=== PATIENT | male | born 2000 | race Caucasian/White ===

== ENCOUNTER 2022-03-28 17:01 | Emergency (ER) | payer OTHER, SELFPAY ==
[2022-03-28 17:02] VITALS: BP 125/74; PULSE 72; RESP 16; TEMP 36.8; O2SAT 99; BMI 23.8
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
[2022-03-28] MEDS: Fluorescein 1 MG STRIP 1 STRIP LEFT EYE (19:04)
[2022-03-28] MEDS: Tetracaine 0.5% Ophthalmic Bottle 1 DRP LEFT EYE (19:04)
[2022-03-28] MEDS: Erythromycin Base 1 OPTH.TUBE 1 APPLIC LEFT EYE (19:46)
[2022-03-28 19:53] VITALS: RESP 18
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
--- NOTE | 2022-03-28 20:09 | PCM.OP.PRO ---
Procedure Report Date of Procedure: 03/28/22 Pre procedure diagnosis: Embedded conjunctival foreign body, left eye Post procedure diagnosis: Same Procedure performed: Removal of embedded conjunctival foreign body, left eye A timeout was performed confirming the correct patient and procedural site. One drop of proparacaine was instilled in the left eye. The metallic foreign body was removed using jeweler's forceps without complication. The patient tolerated the procedure well. Complications: None
== END 2022-03-28 19:53 | disposition home or self-care (01) ==
PROVIDERS: Emergency Provider Emergency Medicine; Visit Provider Emergency Medicine
DX: H11.32 Conjunctival hemorrhage, left eye (principal); T15.92XA Foreign body on external eye, part unspecified, left eye, initial encounter; Z97.3 Presence of spectacles and contact lenses; T15.00XA Foreign body in cornea, unspecified eye, initial encounter
CPT/HCPCS: 65220; 99283

== ENCOUNTER 2024-08-04 09:50 | Emergency (ER) | payer OTHER, SELFPAY ==
[2024-08-04 09:51] VITALS: BP 135/112; PULSE 84; RESP 18; TEMP 36.9; O2SAT 96; BMI 23.6
--- NOTE | 2024-08-04 10:01 | ED.VIS.GI ---
HPI HPI - GI History of Present Illness Chief Complaint: Abd Pain Informant: patient and parent Narrative Narrative: 24-year-old male presenting to the emergency room with abdominal pain and vomiting. Patient states that he and his girlfriend just flew back from [facility]. He states that on the way to the airport and believes she became ill but still boarded the plane to the . They had to make an emergency plane landing in [place] where she was taken off the airplane on a stretcher by EMS with a blood pressure of 80. She was feeling better by this morning and they flew home but for the past several hours he has had vomiting and upper abdominal pain. No reported fevers. They were not scuba diving. He denies any cuts or rashes. He states that at home he felt like he was going to pass out. He states that the upper abdominal pain is severe and he has not experienced anything like this before. PFSH PFSH Home Medications ?Medication ?Instructions ?Recorded ?Last Taken ?Type dicyclomine 20 mg tablet 20 mg PO TID PRN abdominal pain 08/04/24 Unknown Rx #30 tabs ondansetron 4 mg disintegrating 4 mg PO Q6H PRN PRN Nausea #15 tabs 08/04/24 Unknown Rx tablet Allergy/AdvReac Type Severity Reaction Status Date / Time Penicillins AdvReac Hives Verified 03/28/22 17:06 Social History Smoking Status: Never smoker ROS ROS ED Constitutional Constitutional ED: Denies chills, fever(s) or weight loss Eyes Eyes: Denies change in vision or diplopia ENT ENT ED: Denies ear pain, rhinorrhea or sore throat Cardiovascular Cardiovascular: Denies chest pain, orthopnea, palpitations or racing heartbeat Respiratory/Chest Respiratory/Chest: Denies cough, dyspnea or orthopnea Gastrointestinal Gastrointestinal: Reports abdominal pain, nausea and vomiting; Denies diarrhea Genitourinary Genitourinary ED: Denies dysuria, hematuria or urinary frequency Musculoskeletal Musculoskeletal: Denies arthralgias or myalgias Integumentary Denies abscess or rash Neurologic Neurologic: Denies headache(s) or weakness Psychiatric Psychiatric: Denies anxiety, depression, suicidal ideation or suicidal thoughts Endocrine Endocrinology: Denies polydipsia, polyphagia or polyuria Allergic/Immunologic Allergic/Immunologic ED: Denies mouth swelling, tongue swelling or urticaria EXAM Physical Exam Narrative Exam Narrative: Patient is writhing on the bed hyperventilating. Const Vital Signs: 08/04/24 09:51 08/04/24 11:50 08/04/24 12:03 Temperature 98.5 F 97.9 F Temperature Source Oral Pulse Rate 84 78 78 Respiratory Rate 18 16 16 Blood Pressure 135/112 H 90/70 90/70 Blood Pressure Mean 119 76 76 Pulse Ox 96 98 99 Oxygen Delivery Method Room Air Room Air Positive well nourished and well developed General Appearance ED: well developed and NAD HEENT Reports normocephalic, head/scalp atraumatic and moist mucous membranes Eyes PERRL and EOMs intact bilaterally Neck no lymphadenopathy, supple and no JVD Resp normal respiratory effort and clear to auscultation bilaterally Cardio regular rate, regular rhythm and no murmurs GI Auscultation: hyperactive bowel sounds Palpation: soft and tender other (Diffuse) Back/Spine no CVA tenderness and normal ROM Extremity normal to inspection General Extremety ED: Negative for edema General Extremity: Negative for edema Neuro oriented x3 and CN's II-XII intact bilaterally Sensorium / Orientation: alert Motor Exam: strength 5/5 throughout Psych mental status grossly normal Mood & Affect: Negative for depressed or tearful Skin no rashes or lesions noted and no wounds MDM MDM MDM Narrative Medical decision making narrative: Differential diagnosis includes but not limited to abdominal cramping gastroenteritis vomiting electrolyte abnormalities dehydration colitis IV established patient received IV fluids Zofran as well as Ativan. White count is 10 platelet count of 203 hemoglobin is 15.4. BMP shows a glucose of 120 BUN of 22 creatinine 1.12. Total bilirubin at 1.6 direct bilirubin 0.37 otherwise transaminases and alkaline phosphatase are normal. Lipase is 24. Upon repeat examination patient is feeling significantly better. Vital signs are stable. His pain is significantly better. I think he most likely has a viral illness resulting in vomiting and a degree of dehydration. Overall he is now clinically looking better. I will write for Zofran as well as some Bentyl. Would recommend continued oral hydration. Monitor for any changes return if needed History & Record Review Discussion w/independent historian: Patient and Family Lab Data Attestation: I reviewed the patient's lab results. Labs: Laboratory Results - last 24 hr 08/04/24 09:57 WBC 10.0 RBC 5.39 Hgb 15.4 Hct 43.3 MCV 80.3 MCH 28.6 MCHC 35.6 RDW Std Deviation 33.9 L RDW Coeff of Ami 11.8 Plt Count 203 MPV 11.6 Immature Gran % (Auto) 0.400 Neut % (Auto) 84.6 H Lymph % (Auto) 6.1 L [place] % (Auto) 8.6 Eos % (Auto) 0.1 Baso % (Auto) 0.2 Absolute Neuts (auto) 8.5 H Absolute Lymphs (auto) 0.61 L Nucleated RBC % 0 Sodium 140 Potassium 3.6 Chloride 108 H Carbon Dioxide 25.0 Anion Gap 7 BUN 22 H Creatinine 1.12 Estim Creat Clear Calc 97.54 Est GFR (MDRD) Af Amer 102 Est GFR (MDRD) Non-Af 85 BUN/Creatinine Ratio 19.6 Glucose 120 H Calcium 9.9 Total Bilirubin 1.60 H Direct Bilirubin 0.37 H AST 18 ALT 34 Alkaline Phosphatase 51 Total Protein 7.6 Albumin 4.3 Globulin 3.3 Lipase 24 Discharge Plan Triage Chief Complaint: Abd Pain ED Provider: Kevin Nunez Dx/Rx/DC Orders Clinical Impression: Vomiting, Abdominal pain, Acute dehydration Instructions: ED Dehydration (Adult) Prescriptions: New dicyclomine 20 mg tablet 20 mg PO TID PRN (Reason: abdominal pain) Qty: 30 0RF ondansetron 4 mg tablet,disintegrating 4 mg PO Q6H PRN PRN (Reason: Nausea) Qty: 15 0RF Primary Care Provider: Care Physician,No Primary Referrals: Care Physician,No Primary [Primary Care Provider] - Print Language: Macedonian Disposition Disposition: Home, Self Care Discharge Date/Time: 08/04/24 12:04
[2024-08-04] MEDS: 0.9% Normal Saline (1000mL) 1,000 ML 1000 ML IV (10:04)
[2024-08-04] MEDS: Ondansetron 4 MG/2 ML Vial IV (10:04)
[2024-08-04 10:09] LABS: Absolute Lymphocyte Count 0.61 X10^3/uL (0.83-4.51); Absolute Neutrophil Count 8.5 X10^3/uL (2.0-7.7); Basophil# 0.02 X10^3/uL; Basophil% 0.2 % (0-1); Eosinophil# 0.01 X10^3/uL; Eosinophils% 0.1 % (0-5); Hematocrit 43.3 % (40-54); Hemoglobin 15.4 g/dL (13.0-16.5); Lymphocyte # 0.61 X10^3/ul (0.83-4.51); Lymphocyte % 6.1 % (19-41); Mean Corp Hgb Conc 35.6 g/dL (32-36); Mean Corpuscular Hgb 28.6 pg (27.0-32.0); Mean Corpuscular Volume 80.3 fL (80-94); Mean Platelet Vol. 11.6 fl (6.2-12.0); Monocyte# 0.86 X10^3/uL; Monocyte% 8.6 % (0-10); NRBC Flagged by Analyzer 0 % (0-5); Neutrophil % 84.6 % (47-70); Platelet Count 203 K/mm3 (150-450); RBC Distribution Width CV 11.8 % (11.6-14.6); RBC Distribution Width SD 33.9 fl (35.1-43.9); Red Blood Count 5.39 M/mm3 (4.6-6.2)
[2024-08-04] MEDS: LORazepam 2 MG/ML Syringe 1 MG IV (10:12)
[2024-08-04] MEDS: Morphine 4 MG/ML Syringe IV (10:25)
[2024-08-04 10:36] LABS: AST(SGOT) 18 U/L (15-37); Alanine Aminotransfer ALT/SGPT 34 U/L (16-61); Albumin, Serum 4.3 g/dL (3.2-5.0); Alkaline Phosphatase 51 U/L (45-117); Anion Gap 7 (5-15); BUN 22 mg/dL (7-18); BUN/Creat Ratio 19.6 RATIO (10-20); Bilirubin, Direct 0.37 mg/dL (0.00-0.30); Calcium,Total 9.9 mg/dL (8.5-10.1); Chloride 108 mmol/L (98-107); Creatinine, Serum 1.12 mg/dL (0.70-1.30); EST Glomerular Filtration Rate 85 mL/min (>60); Est Glom Filt Rate - Afr Amer 102 mL/min (>60); Estimated Creatinine Clearance 97.54 ml/min; Globulin 3.3 g/dL (2.2-4.2); Glucose 120 mg/dL (74-106); Lipase 24 U/L (13-75); Potassium 3.6 mmol/L (3.5-5.1); Protein, Total 7.6 g/dL (6.4-8.2); Sodium Level 140 mmol/L (136-145)
[2024-08-04 11:50] VITALS: BP 90/70; PULSE 78; RESP 16; O2SAT 98
[2024-08-04 12:03] VITALS: BP 90/70; PULSE 78; RESP 16; TEMP 36.6; O2SAT 99
== END 2024-08-04 12:04 | disposition home or self-care (01) ==
PROVIDERS: Emergency Provider Emergency Medicine; Visit Provider Emergency Medicine
DX: R10.9 Unspecified abdominal pain (principal); E86.0 Dehydration; R11.2 Nausea with vomiting, unspecified
CPT/HCPCS: 80048; 80076; 83690; 85025; 96361; 96374; 96375; 99284; A4216; J2405